=== PATIENT | female | born 2000 | race Two or more races ===

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

== ENCOUNTER 2018-01-16 19:43 | Emergency (ER) | payer MEDICAID ==
[~2018-01-16] VITALS: Ht 165.1 cm; Wt 63.5 kg
[~2018-01-16 19:43] MED LIST changes: +AMOXICILLIN500 MG ORAL; +ARTIFICIAL TEAR15 ML BOTH EYES; +ZOFRAN ODT4 MG ORAL
[2018-01-16 19:50] VITALS: BP 106/69
[2018-01-16] MEDS ORDERED: BACITRACIN-P28.35 GM TP (20:12)
[2018-01-16] MEDS ORDERED: ACYCLOVIR400 MG ORAL (20:12)
--- NOTE | 2018-01-16 20:13 | Emergency Room Report ---
History of Present Illness General Chief Complaint: Skin Rash/Abscess Source: Patient Present Illness HPI 17-year-old female patient presents ER complaining of rash on right side of her mouth for the past 3 days. States that initially began as a small "pimple" that was very pruritic and his grandson since that time. reports itching and burning pain. Denies history of herpes. Denies rash elsewhere on body. Reports up-to-date on vaccinations. Denies fever, chest pain, shortness of breath, abdominal pain, dysuria, hematuria. Denies genital lesions or rash. Allergies: Coded Allergies: SULFAMETHOXAZOLE (Verified Allergy, Unknown, 09/03/15) TRIMETHOPRIM (Verified Allergy, Unknown, 09/03/15) Patient History Past Medical History: see triage record Last Menstrual Period: dec Now: No Reviewed Nursing Documentation: PMH: Agreed; PSxH: Agreed Nursing Documentation-PMH Hx Asthma: Yes Review of Systems All Other Systems: negative except mentioned in HPI Physical Exam Vital Signs Date Time Temp Pulse Resp B/P (MAP) Pulse Ox O2 Delivery O2 Flow Rate FiO2 01/16/18 19:45 98.5 88 16 106/69 96 Room Air 98.4 Sp02 EP Interpretation: reviewed, normal General Appearance: well appearing, no apparent distress, alert, GCS 15, non- toxic Head: normocephalic, atraumatic Eyes: bilateral eye normal inspection, bilateral eye PERRL ENT: hearing grossly normal, normal pharynx, no angioedema, normal voice, uvula midline, moist mucus membranes Neck: full range of motion Respiratory: lungs clear, normal breath sounds, no rhonchi, no respiratory distress, no accessory muscle use, no wheezing, speaking full sentences Cardiovascular #1: regular rate, rhythm, no edema Musculoskeletal: back normal, digits/nails normal, gait/station normal, normal range of motion, non-tender Psychiatric: mood/affect normal Skin: other - right corner of mouth: Vesicles on erythematous base, no surrounding erythema or edema, scabbing noted Medical Decision Making PA Attestation Dr. Barton is my supervising Physician whom patient management has been discussed with. Diagnostic Impression: Primary Impression: Cold sore ER Course Pt. presents to the ED c/o rash at corner of right side of mouth. Ddx considered but are not limited to atopic dermatitis, gingivostomatitis, pharyngitis. Vital signs: are WNL, pt. is afebrile ER COURSE: physical exam consistent with obvious cold sore, will provide patient with antiviral treatment. No unroofed vesicles, no crusting, no weeping lesions. Surrounding erythema or edema, does not require oral antibiotics for cellulitis. DISCHARGE: -Rx given for Acyclovir, 400mg TID x7 days. -Rx given for bacitracin. At this time pt. is stable for d/c to home. Patient is resting comfortably in no acute distress, nontoxic appearing. Will provide printed patient care instructions, and any necessary prescriptions. Patient instructed to follow with primary care provider in 3-5 days for further treatment and referral as needed. Informed patient breakouts may occur during periods of stress or illness. Discuss future treatment options to prevent breakouts with patient; informed patient to discuss with primary care provider. Care plan and follow up instructions have been discussed with the patient prior to discharge. Patient reports understanding and agreement to treatment plan. Patient questions asked and answered. ER precautions given, patient instructed to return to ER immediately for any new or worsening of symptoms. - Please note that this Emergency Department Report was dictated using [employer] technology software, occasionally this can lead to erroneous entry secondary to interpretation by the dictation equipment. Last Vital Signs Date Time Temp Pulse Resp B/P (MAP) Pulse Ox O2 Delivery O2 Flow Rate FiO2 01/16/18 19:45 98.5 88 16 106/69 96 Room Air 98.4 Disposition: HOME, SELF-CARE Condition: Stable Scripts Bacitracin/Polymyxin B Sulfate (BACITRACIN-POLYMYXIN OINTMENT) 28.35 Gm Oint...g. 1 APPLIC TP BID, #28 GM Prov: Artur Garrison 01/16/18 Acyclovir* (ACYCLOVIR*) 400 Mg Tablet 400 MG ORAL TID for 7 Days, #21 TAB Prov: Artur Garrison 01/16/18 Referrals: [facility],REFERRING (PCP) Patient Instructions: Cold Sore, [id number], Herpes Labialis Additional Instructions: Followup with primary care provider in 3 -5 days. Follow-up with PCP and/or STI clinic for further testing and treatment as needed. May use [id number] Abreva. Do not scratch or itch. Take medications as directed. take Benadryl at night for itching symptoms and Claritin during the day, available [id number]. Patient questions asked and answered. ER precautions given, patient instructed to return to ER immediately for any new or worsening of symptoms. Artur Garrison Jan 16, 2018 20:13
[2018-01-16 20:16] VITALS: BP 106/69
== END 2018-01-16 20:17 | disposition home or self-care (01) ==
LOC: EMR 20:02
DX: B00.1 Herpesviral vesicular dermatitis (principal); J45.909 Unspecified asthma, uncomplicated; Z88.2 Allergy status to sulfonamides
CPT/HCPCS: 99283

== ENCOUNTER 2018-08-02 20:36 | Emergency (ER) | payer MEDICAID ==
[~2018-08-02] VITALS: Ht 165.1 cm; Wt 63.5 kg
[~2018-08-02 20:36] MED LIST changes: +ACYCLOVIR400 MG ORAL; +BACITRACIN-P28.35 GM TP
[2018-08-02 21:13] VITALS: BP 120/75
[2018-08-02 21:13] LABS: APPEARANCE,URINE CLEAR; BILIRUBIN, URINE NEGATIVE (NEGATIVE); COLOR,URINE PALE YELLOW; GLUCOSE, URINE (UA) NEGATIVE (NEGATIVE); KETONES,URINE NEGATIVE (NEGATIVE); LEUKOCYTE ESTERASE ,URINE 1+ (NEGATIVE); NITRITE,URINE NEGATIVE (NEGATIVE); PH,URINE 7 (4.5-8.0); PROTEIN,URINE NEGATIVE (NEGATIVE); UROBILINOGEN,URINE NORMAL MG/DL (0.0-1.0)
--- NOTE | 2018-08-02 21:14 | NUR ---
ED Nurse Note: Patient walked in with steady gait c/o painful urination. AAO x4, VSS at this time. Skin is dry, intact, warm to touch. Per patient it is really painful to pee, it's burning a lot.
--- NOTE | 2018-08-02 21:30 | NUR ---
ED Nurse Note: Pt cleared by health care Provider for discharge. DC instructions/prescription was given and explained to pt and verbalized understanding of teachings. All medical deviecs such as ID band removed. Pt is AAO x4, ambulatory and left with all personal belongings.
--- NOTE | 2018-08-02 21:40 | Emergency Room Report ---
History of Present Illness General Chief Complaint: Female Urogenital Problems Source: Patient Present Illness HPI Patient presents with 2 days of burning with urination Denies any back or flank pain Denies any vomiting or diarrhea Denies any frequency denies any vaginal discharge denies any fevers or rash Pain is 3 out of 10 burning sensation denies any other recent trauma Allergies: Coded Allergies: SULFAMETHOXAZOLE (Verified Allergy, Unknown, 09/03/15) TRIMETHOPRIM (Verified Allergy, Unknown, 09/03/15) Patient History Past Medical History: see triage record Pertinent Family History: none Last Menstrual Period: 06/29 Now: No : 1 Reviewed Nursing Documentation: PMH: Agreed; PSxH: Agreed Nursing Documentation-PMH Past Medical History: No Stated History Hx Asthma: Yes Review of Systems All Other Systems: negative except mentioned in HPI Physical Exam Vital Signs Date Time Temp Pulse Resp B/P (MAP) Pulse Ox O2 Delivery O2 Flow Rate FiO2 08/02/18 20:49 98.1 91 17 120/75 100 Room Air Sp02 EP Interpretation: reviewed, normal General Appearance: well appearing, no apparent distress Head: normocephalic, atraumatic Eyes: bilateral eye PERRL, bilateral eye EOMI ENT: hearing grossly normal, normal pharynx, TMs + canals normal, uvula midline Neck: full range of motion, supple, no meningismus, no bony tend Respiratory: lungs clear, normal breath sounds, no rhonchi, no respiratory distress, no retraction, no accessory muscle use Cardiovascular #1: normal peripheral pulses, regular rate, rhythm, no edema, no gallop, no JVD, no murmur Gastrointestinal: normal bowel sounds, non tender, soft, no mass, no organomegaly, non-distended, no guarding, no hernia, no pulsatile mass, no rebound Genitourinary: no CVA tenderness Musculoskeletal: normal inspection Neurologic: oriented x3, responsive, emergency room physician assistant III-XII nml as tested, motor strength/ tone normal, sensory intact Psychiatric: mood/affect normal Skin: normal color, no rash, warm/dry, palpation normal Lymphatic: normal inspection, no adenopathy Medical Decision Making Diagnostic Impression: Primary Impression: Urinary tract infection ER Course Multiple differentials considered patient's complaints and discomfort however fairly consistent with clinical diagnosis of UTI urine sample Also showing white blood cells and leukocytes patient placed on antibiotics and will have close outpatient follow-up Labs Test 08/02/18 21:00 Urine Color Pale yellow Urine Appearance Clear Urine pH 7 (4.5-8.0) Urine Specific [place] 1.005 (1.005-1.035) Urine Protein Negative (NEGATIVE) Urine Glucose (UA) Negative (NEGATIVE) Urine Ketones Negative (NEGATIVE) Urine Blood Negative (NEGATIVE) Urine Nitrite Negative (NEGATIVE) Urine Bilirubin Negative (NEGATIVE) Urine Urobilinogen Normal MG/DL (0.0-1.0) Urine Leukocyte Esterase 1+ (NEGATIVE) Urine RBC 0-2 /HPF (0 - 2) Urine WBC 15-20 /HPF (0 - 2) Urine Squamous Epithelial Cells Moderate /LPF (NONE/OCC) Urine Bacteria Few /HPF (NONE) Urine HCG, Qualitative Negative (NEGATIVE) Last Vital Signs Date Time Temp Pulse Resp B/P (MAP) Pulse Ox O2 Delivery O2 Flow Rate FiO2 08/02/18 21:13 98.1 17 120/75 100 Room Air 08/02/18 20:49 91 Status: unchanged Disposition: HOME, SELF-CARE Condition: Stable Additional Instructions: Patient is provided with the discharge instructions notified to follow up with primary doctor in the next 2-3 days otherwise return to the er with any worsening symptoms. Please note that this report is being documented using [employer] technology. This can lead to erroneous entry secondary to incorrect interpretation by the dictating instrument. Cole Ramirez DO Aug 02, 2018 21:40
[2018-08-02] MEDS ORDERED: NITROFURANTOIN100 M2 ORAL (21:41)
[2018-08-02] MEDS ORDERED: PHENAZOPYRIDIN100 MG ORAL (21:46)
[2018-08-02 22:05] VITALS: BP 120/75
== END 2018-08-02 21:30 | disposition home or self-care (01) ==
LOC: EMR 21:21
DX: N39.0 Urinary tract infection, site not specified (principal); J45.909 Unspecified asthma, uncomplicated; Z88.2 Allergy status to sulfonamides
CPT/HCPCS: 81003; 81025; 87086; 99283